=== PATIENT | female | born 1990 | race Caucasian/White ===

== ENCOUNTER → 2020-06-08 | Outpatient (CLI) | payer OTHER | END | disposition home or self-care (01) | LOC: PRENATAL 10:51 | PROVIDERS: ATTEND Obstetrics & Gynecology Maternal & Fetal Medicine | DX: O35.0XX1 Maternal care for (suspected) central nervous system malformation in fetus, fetus 1 (principal); O35.3XX1 Maternal care for (suspected) damage to fetus from viral disease in mother, fetus 1; O98.512 Other viral diseases complicating pregnancy, second trimester; Z36.89 Encounter for other specified antenatal screening; Z3A.27 27 weeks gestation of pregnancy ==

== ENCOUNTER 2020-08-31 07:53 | Inpatient (IN) | payer OTHER ==
[~2020-08-31] VITALS: Ht 160 cm; Wt 4.1 kg
[2020-08-31] MEDS ORDERED: PRENATAL TABLE1 EAC1 PO (12:54)
== END 2020-09-03 12:58 | disposition home or self-care (01) | DRG 785 ==
LOC: OB/GYN 07:53 → O/R 07:53 → LDR 07:53 → O/R 13:36 → OB/GYN 14:08
PROVIDERS: ADMIT Obstetrics & Gynecology; ATTEND Obstetrics & Gynecology
PROC: 0UB70ZZ Excision of Bilateral Fallopian Tubes, Open Approach (ICD-10-PCS; 2020-08-31)
PROC: 4A1HXFZ Monitoring of Products of Conception, Cardiac Rhythm, External Approach (ICD-10-PCS; 2020-08-31)
PROC: 10D00Z1 Extraction of Products of Conception, Low, Open Approach (ICD-10-PCS; principal; 2020-08-31 12:00)
DX: O34.211 Maternal care for low transverse scar from previous cesarean delivery (principal); Z30.2 Encounter for sterilization; Z3A.39 39 weeks gestation of pregnancy; Z37.0 Single live birth